=== PATIENT | female | born 2000 | race African-American/Black ===

== ENCOUNTER 2022-01-27 10:10 | Emergency (ER) | payer OTHER, SELFPAY ==
--- NOTE | 2022-01-27 10:12 | ED.SKABFB ---
HPI - Skin/Abscess/Foreign Bdy General Chief complaint: Skin/Abscess/Foreign Body Stated complaint: lump on chin Time Seen by Provider: 01/27/22 10:24 Source: patient and RN notes reviewed Mode of arrival: ambulatory Limitations: no limitations History of Present Illness HPI narrative: 21-year-old female presents to the [facility] with a lump on her chin submandibular area. States is been like that for approximately 3 days. Tender to palpation. Denies fevers. No problems eating. Denies fevers, chest pain or abdominal pain. No lymphadenopathy. Patient is up-to-date on all immunizations, active duty Onset (ago): day(s) (3) Tetanus up to date: yes Related Data Allergies Allergy/AdvReac Type Severity Reaction Status Date / Time No Known Allergies Allergy Verified 01/27/22 10:24 Review of Systems Review of Systems: All systems reviewed & are unremarkable except as noted in HPI and below Constitutional: Constitutional: Reports no additional constitutional complaints, Denies chills and Denies fever(s) Eyes: Eyes: Reports no additional eye complaints ENT: Reports as per HPI Comments: Submandibular swelling Cardiovascular: Cardiovascular: Reports no additional cardiovascular complaints Respiratory: Respiratory: Reports no additional respiratory complaints Gastrointestinal: Gastrointestinal: Reports no additional gastrointestinal complaints Musculoskeletal: Musculoskeletal: Reports no additional musculoskeletal complaints Integumentary/Breasts: Skin/Breast: Reports system reviewed and no additional complaints, except as docu Neurologic: Reports system reviewed and no additional complaints, except as documented Psychiatric: Psychiatric: Reports no additional psychiatric complaints Allergic/Immunologic: Allergic/Immunologic: Reports no additional allergic/immunologic complaints [facility] Past Medical History Medical History (Updated 01/27/22 @ 15:21 by Marbella Mayorga APRN) Patient denies medical problems Surgical History Surgical History (Updated 01/27/22 @ 15:21 by Marbella Mayorga APRN) [place] teeth removed Social History Social History (Updated 01/27/22 @ 15:21 by Marbella Mayorga APRN) Occupation/Education: occupation Additional occupation/education comments: [employer] Gender identity (if verbalized by the patient): Female Comments At the time of my signature, I reviewed and agree with the nursing past medical, surgical, social, and family history. There is no relevant family history pertinent to the patient complaint. Exam Const: General: healthy appearing, no acute distress and alert Nutritional Appearance: well nourished Orientation/consciousness: patient oriented x3 Limitations: no limitations HENMT: Head: normal to inspection Head images: 1. Submandibular swelling, no redness. Tender to palpation. Unable to palpate a stone, firm, fluctuant area. Ears: external ears normal General nose exam: Normal external nose present, Normal nares present and Normal nasal mucous membranes and turbinates present Face and sinus: sinuses nontender and face symmetric Mouth: Yes Normal oral and palatal mucosa present, Yes lip normal, Yes tongue normal, Yes Normal salivary glands and ducts present, Yes oropharynx normal, Yes moist mucous membranes and No muffled voice Teeth and gingiva: dentition normal Throat: posterior oropharynx normal, uvula midline and tonsils absent Eyes: General: appearance normal, both eyes and all related structures Pupils: Equal, round and reactive pupils present Neck: Neck: normal visual inspection, no lymphadenopathy and no meningeal signs Chest: Chest palpation & inspection: normal inspection of the chest Resp: Effort & Inspection: normal respiratory effort and no use of accessory muscles Auscultation: clear to auscultation bilaterally, no crackles, no rales, no rhonchi and no wheezes Cardio: Rate: regular rate Rhythm: regular rhythm Back/Spine/Pelvis: Ce
[2022-01-27 10:22] VITALS: BP 122/66; PULSE 75; RESP 18; TEMP 36.4; O2SAT 99
== END 2022-01-27 10:42 | disposition home or self-care (01) ==
PROVIDERS: Emergency Provider Nurse Practitioner
DX: R59.9 Enlarged lymph nodes, unspecified (principal)
CPT/HCPCS: 99203; G0463